=== PATIENT | male | born 1990 | race Caucasian/White ===

== ENCOUNTER 2020-03-13 11:19 | Emergency (ER) | payer SELFPAY ==
[2020-03-13 11:47] LABS: Basophils % 1.2 % (0-1.3); Hematocrit 47.4 % (39.6-49.0); MPV 8.7 fL (7.6-11.3); RBC Red Blood Cell Count 5.47 M/uL (4.33-5.43)
[2020-03-13 12:11] LABS: ALT/SGPT 24 U/L (12-78); AST/SGOT 18 U/L (15-37); Alkaline Phosphatase 83 U/L (45-117); BUN Blood Urea Nitrogen 13 mg/dL (7-18); Bicarbonate 27 mmol/L (21-32); Bilirubin Direct < 0.1 mg/dL (0-0.2); Bilirubin Total 0.5 mg/dL (0.2-1.0); Glucose Level 102 mg/dL (74-106); Potassium 4.3 mmol/L (3.5-5.1); Protein, Total 7.5 g/dL (6.4-8.2); Sodium Level 138 mmol/L (136-145); Troponin (Emerg Dept Use Only) < 0.02 ng/mL (0.0-0.045)
--- NOTE | 2020-03-13 12:21 | RAD REPORT ---
EXAM DESCRIPTION: RAD - Chest Single View - 03/13/2020 12:14 pm CLINICAL HISTORY: CHEST PAIN Chest pain. COMPARISON: No comparisons FINDINGS: Portable technique limits examination quality. The lungs are grossly clear. The heart is normal in size. No displaced fractures. IMPRESSION: No acute intrathoracic process suspected.
--- NOTE | 2020-03-13 12:32 | ER ---
Nurse's Notes [facility] Name: Felipe Garcia Age: 29 yrs Sex: Male : 1990 Arrival Date: 03/13/2020 Time: 11:20 Bed 5 Private MD: Diagnosis: Chest pain, unspecified Presentation: 03/13 11:21 Chief complaint: EMS states: Left sided chest pain, nonproductive cough and SOB after hb drinking red bull today. Coronavirus screen: Patient reports a cough. Patient reports shortness of breath or difficulty breathing. cleared from droplet per [employer] Rebekah. Ebola Screen: No symptoms or risks identified at this time. Initial Sepsis Screen: Does the patient meet any 2 criteria? No. Patient's initial sepsis screen is negative. Does the patient have a suspected source of infection? No. Patient's initial sepsis screen is negative. Risk Assessment: Do you want to hurt yourself or someone else? Patient reports no desire to harm self or others. Onset of symptoms was February 2020. 11:21 Method Of Arrival: EMS: [facility] 11:21 Acuity: YASSINE 3 hb Triage Assessment: 11:25 General: Appears in no apparent distress. Behavior is calm, cooperative. Pain: Pain hb currently is 3 out of 10 on a pain scale. EENT: No signs and/or symptoms were reported regarding the EENT system. Neuro: Level of Consciousness is awake, alert, obeys commands, Oriented to person, place, time, situation. Cardiovascular: Capillary refill < 3 seconds Patient's skin is warm and dry. Respiratory: Reports shortness of breath cough that is non-productive, Onset: The symptoms/episode began/occurred this morning, the patient has mild shortness of breath. GI: No signs and/or symptoms were reported involving the gastrointestinal system. : No signs and/or symptoms were reported regarding the genitourinary system. Derm: Skin is pink, warm \T\ dry. Musculoskeletal: No signs and/or symptoms reported regarding the musculoskeletal system. Historical: - Allergies: : No Known Allergies; hb - Home Meds: 11:23 None [Active]; hb - PMHx: 11: None; hb - PSHx: 11:23 None; hb - Immunization history:: Adult Immunizations up to date. - Social history:: Smoking status: Patient reports the use of cigarette tobacco products, smokes one-half pack cigarettes per day. Screenin:25 Abuse screen: Denies threats or abuse. Denies injuries from another. Nutritional hb screening: No deficits noted. Tuberculosis screening: No symptoms or risk factors identified. Fall Risk None identified. Assessment: 11:26 General: SEE TRIAGE. hb 12:30 Reassessment: Patient appears in no apparent distress at this time. Patient is alert, hb oriented x 3, equal unlabored respirations, skin warm/dry/pink. Patient is alert/active/playful, equal unlabored respirations, skin warm/dry/pink. Vital Signs: 11:21 BP 150 / 108; Pulse 73; Resp 16; Temp 97.8; Pulse Ox 100% ; Weight 83.91 kg; Height 5 hb ft. 10 in. (177.80 cm); Pain 3/10; 12:04 BP 144 / 90; Pulse 67; Resp 16; Pulse Ox 97% ; jl7 11:21 Body Mass Index 26.54 (83.91 kg, 177.80 cm) hb ED Course: 11:20 Patient arrived in ED. hb 11:23 Triage completed. hb 11:23 Rebekah Celis FNP-C is PHCP. kb 11:23 Robert Hines MD is Attending Physician. kb 11:24 Arm band placed on. hb 11:26 Patient has correct armband on for positive identification. Bed in low position. Call hb light in reach. Side rails up X 1. 11:34 Inserted saline lock: 22 gauge in right antecubital area, using aseptic technique. hb Blood collected. 11:36 Winifred Abbott, RN is Primary Nurse. hb 12:14 XRAY Chest (1 view) In Process Unspecified. EDMS 12:41 No provider procedures requiring assistance completed. IV discontinued, intact, hb bleeding controlled, No redness/swelling at site. Administered Medications: No medications were administered Outcome: 12:32 Discharge ordered by . kb 12:41 Discharged to home ambulatory. hb 12:41 Condition: stable 12:41 Discharge instructions given to patient, Instructed on discharge instructions, follow up and referral plans. medication usage, Demonstrated understanding of instructions, follow-up care, wound care. 12:48 Patient left the ED. hb Signatures: Dispatcher [employer] EDMS Rebekah Celis FNP-C FNP-Ckb Baxter, Winifred, RN RN Katharine Scott RN RN jl7 Corrections: (The following items were deleted from the chart) 11:24 11:21 Chief complaint: EMS states: Left sided chest pain an d nonproductive cough x 2 hb weeks, SOB today. hb
--- NOTE | 2020-03-13 12:32 | EDPHYS ---
Physician Documentation [facility] Name: Felipe Garcia Age: 29 yrs Sex: Male : 1990 Arrival Date: 03/13/2020 Time: 11:20 Bed 5 Private MD: ED Physician Robert Hines HPI: 03/13 12:02 This 29 yrs old Male presents to ER via EMS with complaints of Shortness Of Breath, kb Non-Productive Cough, Chest Pain. 12:02 The patient has shortness of breath at rest. Onset: The symptoms/episode began/occurred kb this morning. Duration: The symptoms are continuous. The patient's shortness of breath is aggravated by nothing, is alleviated by nothing. Associated signs and symptoms: Pertinent positives: chest pain, non-productive cough, Pertinent negatives: productive cough, diaphoresis, dizziness, fever, hemoptysis, loss of consciousness, nausea, numbness in extremities, visual changes, vomiting. Severity of symptoms: At their worst the symptoms were mild moderate in the emergency department the symptoms have improved. The patient has not experienced similar symptoms in the past. The patient has not recently seen a physician. Pt reports he had some congestion over the weekend, didn't go to work yesterday because of it but felt better today so he went in. Reports some shortness of breath when he got to work, then drank a redbull and it got worse with chest pain. STates he has had this pain multiple times in the past and he normally just hits his chest a couple of times and it goes away. States the shortness of breath has resolved, but CP continues to left side of chest. Historical: - Allergies: : No Known Allergies; hb - Home Meds: 11:23 None [Active]; hb - PMHx: 11:23 None; hb - PSHx: 11:23 None; hb - Immunization history:: Adult Immunizations up to date. - Social history:: Smoking status: Patient reports the use of cigarette tobacco products, smokes one-half pack cigarettes per day. ROS: 12:02 Constitutional: Negative for fever, chills, and weight loss, ENT: Negative for injury, kb pain, and discharge, Neck: Negative for injury, pain, and swelling, Abdomen/GI: Negative for abdominal pain, nausea, vomiting, diarrhea, and constipation, Back: Negative for injury and pain, MS/Extremity: Negative for injury and deformity, Skin: Negative for injury, rash, and discoloration, Neuro: Negative for headache, weakness, numbness, tingling, and seizure. 12:02 Cardiovascular: Positive for chest pain, Negative for edema, orthopnea, palpitations, paroxysmal nocturnal dyspnea. 12:02 Respiratory: Positive for shortness of breath. Exam: 12:05 Constitutional: This is a well developed, well nourished patient who is awake, alert, kb and in no acute distress. Head/Face: Normocephalic, atraumatic. ENT: Nares patent. No nasal discharge, no septal abnormalities noted. Tympanic membranes are normal and external auditory canals are clear. Oropharynx with no redness, swelling, or masses, exudates, or evidence of obstruction, uvula midline. Mucous membranes moist. Neck: Trachea midline, no thyromegaly or masses palpated, and no cervical lymphadenopathy. Supple, full range of motion without nuchal rigidity, or vertebral point tenderness. No Meningismus. Chest/axilla: Normal chest wall appearance and motion. Nontender with no deformity. No lesions are appreciated. Cardiovascular: Regular rate and rhythm with a normal S1 and S2. No gallops, murmurs, or rubs. Normal PMI, no JVD. No pulse deficits. Respiratory: Lungs have equal breath sounds bilaterally, clear to auscultation and percussion. No rales, rhonchi or wheezes noted. No increased work of breathing, no retractions or nasal flaring. Abdomen/GI: Soft, non-tender, with normal bowel sounds. No distension or tympany. No guarding or rebound. No evidence of tenderness throughout. Skin: Warm, dry with normal turgor. Normal color with no rashes, no lesions, and no evidence of cellulitis. MS/ Extremity: Pulses equal, no cyanosis. Neurovascular intact. Full, normal range of motion. Neuro: Awake and alert, GCS 15, oriented to person, place, time, and situation. Cranial nerves II-XII grossly intact. Motor strength 5/5 in all extremities. Sensory grossly intact. Cerebellar exam normal. Normal gait. Vital Signs: 11:21 BP 150 / 108; Pulse 73; Resp 16; Temp 97.8; Pulse Ox 100% ; Weight 83.91 kg; Height 5 hb ft. 10 in. (177.80 cm); Pain 3/10; 12:04 BP 144 / 90; Pulse 67; Resp 16; Pulse Ox 97% ; jl7 11:21 Body Mass Index 26.54 (83.91 kg, 177.80 cm) hb MDM: 11:23 Patient medically screened. kb 12:05 Data reviewed: vital signs, nurses notes. Data interpreted: Pulse oximetry: on room air kb is 97 %. Interpretation: normal. 12:31 Counseling: I had a detailed discussion with the patient and/or guardian regarding: the kb historical points, exam findings, and any diagnostic results supporting the discharge/admit diagnosis, lab results, radiology results, the need for outpatient follow up, a family practitioner, to return to the emergency department if symptoms worsen or persist or if there are any questions or concerns that arise at home. 03/13 11:24 Order name: Basic Metabolic Panel; Complete Time: 12:28 kb 03/13 11:24 Order name: CBC with Diff; Complete Time: 11:52 kb 03/13 11:24 Order name: LFT's; Complete Time: 12:28 kb 03/13 11:24 Order name: Magnesium; Complete Time: 12:28 kb 03/13 11:24 Order name: Troponin (emerg Dept Use Only); Complete Time: 12:28 kb 03/13 11:24 Order name: XRAY Chest (1 view); Complete Time: 12:28 kb 03/13 11:24 Order name: EKG; Complete Time: 11:24 kb 03/13 11:24 Order name: Cardiac monitoring; Complete Time: 11:36 kb 03/13 11:24 Order name: EKG - Nurse/Tech; Complete Time: 11:36 kb 03/13 11:24 Order name: IV Saline Lock; Complete Time: 11:36 kb 03/13 11:24 Order name: Labs collected and sent; Complete Time: 11:36 kb 03/13 11:24 Order name: O2 Per Protocol; Complete Time: 11:37 kb 03/13 11:24 Order name: O2 Sat Monitoring; Complete Time: 11:37 kb Administered Medications: No medications were administered Disposition: 13:51 Co-signature as Attending Physician, Robert Hines MD I agree with the assessment and monalisa plan of care. Disposition: 03/13/20 12:32 Discharged to Home. Impression: Chest pain, unspecified. - Condition is Stable. - Discharge Instructions: Nonspecific Chest Pain, [id number]. - Medication Reconciliation Form, Thank You Letter, Antibiotic Education, Prescription Opioid Use form. - Follow up: Emergency Department; When: As needed; Reason: Worsening of condition. Follow up: Private Physician; When: 2 - 3 days; Reason: Recheck today's complaints, Continuance of care, Re-evaluation by your physician. Signatures: Dispatcher [employer] EDRebekah Khan, LAURYN-Jae WHYTEP-Robert Alford MD MD cha Baxter, Heather, REJI RN hb Corrections: (The following items were deleted from the chart) 12:06 12:02 Pt reports he had some congestion over the weekend, didn't go to work yesterday kb because of it but felt better today so he went in. Reports some shortness of breath when he got to work, then drank a redbull and it got worse with chest pain. STates he has had this pain multiple times in the past and he normally just hits his chest a couple of times and it goes away. . kb 12:48 12:32 03/13/2020 12:32 Discharged to Home. Impression: Chest pain, unspecified. hb Condition is Stable. Forms are Medication Reconciliation Form, Thank You Letter, Antibiotic Education, Prescription Opioid Use. Follow up: Emergency Department; When: As needed; Reason: Worsening of condition. Follow up: Private Physician; When: 2 - 3 days; Reason: Recheck today's complaints, Continuance of care, Re-evaluation by your physician. kb
[2020-03-13 13:01] VITALS: TEMP 97.8
[2020-03-13 13:03] VITALS: BP 144/90; O2SAT 97
--- NOTE | 2020-03-14 07:56 | EKG ---
Test Date: 2020-03-13 Test Time: 11:32:28 Computational Physicist: KULDEEP MEASUREMENT RESULTS: Intervals: Rate: 61 MI: 154 QRSD: 92 QT: 386 QTc: 388 Danielson: P: 47 MI: 154 QRS: 55 T: 5 INTERPRETIVE STATEMENTS: Normal sinus rhythm Normal ECG No previous ECG available for comparison Electronically Signed On 03-14-20 07:55:56 CDT by Solitario Morse
== END 2020-03-13 12:48 | disposition home or self-care (01) ==
LOC: ER 11:19
DX: R07.9 Chest pain, unspecified (principal); F17.210 Nicotine dependence, cigarettes, uncomplicated
CPT/HCPCS: 36415; 71045; 80048; 80076; 83735; 84484; 85025; 93005; 99284